=== PATIENT | male | born 1955 | race Caucasian/White ===

== ENCOUNTER → 2023-04-12 | Outpatient (CLI) | payer MEDICARE | END | disposition home or self-care (01) | LOC: RESCLI 12:46 | PROVIDERS: ATTEND Internal Medicine | DX: K74.60 Unspecified cirrhosis of liver (principal); K21.9 Gastro-esophageal reflux disease without esophagitis; D64.9 Anemia, unspecified; K59.00 Constipation, unspecified; Z98.890 Other specified postprocedural states; G47.30 Sleep apnea, unspecified; Z82.49 Family history of ischemic heart disease and other diseases of the circulatory system; Z82.3 Family history of stroke; Z79.899 Other long term (current) drug therapy ==